=== PATIENT | male | born 1990 | race Caucasian/White ===

== ENCOUNTER 2019-02-10 19:15 | Emergency (ER) | payer MEDICAID, OTHER ==
[~2019-02-10] VITALS: Ht 167.6 cm; Wt 64.4 kg
[2019-02-10 19:46] VITALS: BP 133/87
--- NOTE | 2019-02-10 19:55 | NUR ---
PT AMBULATED TO LOBBY WITH VSS.
--- NOTE | 2019-02-10 21:34 | NUR ---
PT AMBULATED TO BED 07.
--- NOTE | 2019-02-10 21:37 | NUR ---
28/M PRESENTED TO ED WITH C/O URINARY BURNING AND GREEN DISCHARGE X 2DAYS. PAIN ON URINATION. PT HAD UNPROTECTED SEX WITH 2 FEMALES X2 WEEKS AGO. PT ADMITS TO METH AND MARIJUANA USE. PT IS HOMELESS. NKA DENIES PMH
--- NOTE | 2019-02-10 22:27 | NUR ---
PT LAYING IN BED NO SIGNS OF DISTRESS. WAITING TO BE SEEN BY MD. WILL CONTINUE TO MONITOR.
--- NOTE | 2019-02-10 23:25 | NUR ---
PT IS SITTING ON BED WAITING TO BE SEEN BY ERMD. NO SIGNS OF DISTRESS.
[2019-02-10] MEDS ORDERED: cefTRIAXone 250 MG in LIDOCAINE MPF 1% - 5 mL VIAL 0.9 ML IM STA (23:35)
[2019-02-10] MEDS ORDERED: AZITHROMYCIN 250 MG TAB PO STA (23:35)
--- NOTE | 2019-02-10 23:43 | NUR ---
PULLED 3 ON INITIAL MED PYXIS WITHDRAW OF AZITHROMYCIN. PULLED AN ADDITIONAL 1 TO MAKE TOTAL OF 4-1000MG PO.
[2019-02-11 00:14] VITALS: BP 133/87
== END 2019-02-11 00:14 | disposition home or self-care (01) ==
LOC: MED 19:15
DX: A64 Unspecified sexually transmitted disease (principal)
CPT/HCPCS: 36415; 81002; 96372; 99283; J0696; J2001